=== PATIENT | male | born 1975 | race Caucasian/White ===

== ENCOUNTER 2020-05-22 08:54 | Emergency (ER) | payer OTHER ==
[~2020-05-22] VITALS: Ht 177.8 cm; Wt 85.0 kg
--- NOTE | 2020-05-22 09:22 | NUR ---
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 He is recovered from a COVID diagnosis in January. Pt complains of aching chest pressure that he sometimes feels in his back that he noticed around the time he recovered from COVID. Pt states sometimes he feels his heart race but his HR "only goes up a little." Pt states he's worked out a couple times with associated SOB, and has since "been taking it easy." Pt connected to all monitors. NADN. MD Fritz at bedside.
[2020-05-22 09:50] LABS: BASOPHILS % (AUTO) 1 % (0-1); EOSINOPHILS % (AUTO) 1 % (1-7); LYMPHOCYTES % (AUTO) 31 % (22-44); MEAN CORPUSCULAR HEMOGLOBIN 31.2 pg (27.5-34.5); MEAN CORPUSCULAR HGB CONC 33.6 g/dL (33.2-36.2); MEAN PLATELET VOLUME 8.4 fL (7.4-10.4); MONOCYTES % (AUTO) 9 % (2-9); NEUTROPHILS % (AUTO) 58 % (42-75); PLATELET COUNT 242 x10^3/uL (130-400); RED BLOOD COUNT 4.88 x10^6/uL (4.38-5.82); RED CELL DISTRIBUTION WIDTH 13.6 % (9.4-14.8)
[2020-05-22 09:51] LABS: MD NO
[2020-05-22 09:56] LABS: ALBUMIN 4.3 g/dL (3.4-5.0); ANION GAP 4 mmol/L (5-15); CALCIUM 9.3 mg/dL (8.5-10.1); CHLORIDE 111 mmol/L (98-107); CREATININE 1.16 mg/dL (0.7-1.3)
[2020-05-22 10:00] LABS: TROPONIN I < 0.015 ng/mL (0.000-0.045)
[2020-05-22 10:40] VITALS: BP 122/80
== END 2020-05-22 10:43 | disposition home or self-care (01) ==
LOC: ED 10:30
DX: R07.89 Other chest pain (principal)
CPT/HCPCS: 36415; 71046; 80048; 82040; 84484; 85025; 93005; 99285